=== PATIENT | male | born 1985 | race Caucasian/White ===

== ENCOUNTER 2018-11-29 10:41 | Emergency (ER) | payer MEDICAID ==
[~2018-11-29] VITALS: Ht 170.2 cm; Wt 65.6 kg
[2018-11-29 10:46] VITALS: BP 139/98
--- NOTE | 2018-11-29 11:15 | NUR ---
SOCKS PROVIDED. WASH CLOTH AND BASIN PROVIDED FOR PT TO WASH FEET. AWAITING DC PAPERS AT THIS TIME
== END 2018-11-29 11:38 | disposition home or self-care (01) ==
LOC: ED 11:30
DX: B35.3 Tinea pedis (principal); F17.200 Nicotine dependence, unspecified, uncomplicated
CPT/HCPCS: 99282

== ENCOUNTER 2018-11-29 20:16 | Emergency (ER) | payer MEDICAID ==
[~2018-11-29] VITALS: Ht 170.2 cm; Wt 64.6 kg
[2018-11-29 20:22] VITALS: BP 151/92
--- NOTE | 2018-11-29 20:30 | NUR ---
first contact with pt. pt c/o bilateral toes pain x 1 month. pt's aox4. resps even and unlabored.
--- NOTE | 2018-11-29 21:07 | NUR ---
BS 107 AT THIS TIME. PA NOTIFIED.
--- NOTE | 2018-11-29 21:20 | NUR ---
PT GIVEN DC INSTRUCTIONS AND SCRIPT. PT'S AOX4. RESPS EVEN AND UNLABORED. NO ACUTE DISTRESS AT DC.
== END 2018-11-29 21:21 | disposition home or self-care (01) ==
LOC: ED 21:15
DX: B35.3 Tinea pedis (principal)
CPT/HCPCS: 82962; 99283

== ENCOUNTER 2018-11-29 22:14 | Emergency (ER) | payer MEDICAID ==
--- NOTE | 2018-11-29 22:21 | NUR ---
PT PRESENTED A 2ND TIME AFTER BEIND JUST DISCHARGED. PT UP AMBULATORY AND SECURITY ESCORTED PATIENT OUTSIDE.
== END 2018-11-29 22:33 | disposition left against medical advice (07) ==
LOC: ED 22:23
DX: M79.672 Pain in left foot (principal); Z53.21 Procedure and treatment not carried out due to patient leaving prior to being seen by health care provider